=== PATIENT | male | born 1990 | race Caucasian/White ===

== ENCOUNTER 2019-01-02 13:51 | Emergency (ER) | payer OTHER ==
[~2019-01-02] VITALS: Ht 190.5 cm; Wt 92.1 kg
[2019-01-02] MEDS ORDERED: ULTRAM 50MG TAB50 MG PO (17:07)
[2019-01-02 17:23] VITALS: BP 125/66
== END 2019-01-02 17:20 | disposition home or self-care (01) ==
LOC: ER 13:51
DX: M25.532 Pain in left wrist (principal); F17.210 Nicotine dependence, cigarettes, uncomplicated

== ENCOUNTER 2019-04-13 10:07 | Emergency (ER) | payer OTHER ==
[~2019-04-13] VITALS: Ht 190.5 cm; Wt 93.0 kg
[~2019-04-13 10:07] MED LIST: ULTRAM 50MG TAB50 MG PO
[2019-04-13 13:09] LABS: HEMATOCRIT 33.8 % (42.0-52.0); HEMOGLOBIN 10.7 gm/dL (14.0-18.0); MCHC 31.8 g/dL (28.0-37.0); MCV 62.9 fL (80.0-100.0); PLATELET COUNT 182 thou/uL (150-400); RBC 5.37 mil/uL (4.50-6.00); RDW 16.6 % (10.5-14.5); WBC 5.4 thou/uL (4.0-11.0)
[2019-04-13 13:16] LABS: ANION GAP 7 mmol/L (7-16); BUN 21 mg/dL (7-18); CHLORIDE 106 mmol/L (98-107); CO2 27 mmol/L (21-32); CREATININE 0.8 mg/dL (0.7-1.3); GLUCOSE 103 mg/dL (74-106); POTASSIUM 4.3 mmol/L (3.5-5.1); SODIUM 140 mmol/L (136-145)
[2019-04-13 13:22] LABS: ALBUMIN 3.3 g/dL (3.4-5.0); SALICYLATE < 2.8 mg/dL (2.8-20.0); SGOT 18 U/L (15-37); SGPT 23 U/L (30-65); TOTAL BILIRUBIN 0.3 mg/dL (<0.1-1.0); TOTAL PROTEIN 6.7 g/dL (6.4-8.2)
[2019-04-13 13:43] LABS: ABSOLUTE NEUTROPHILS 3.8 thou/uL (1.4-8.2); ANISOCYTOSIS 1+; HYPOCHROMASIA 1+; MICROCYTES 1+
[2019-04-13 18:48] VITALS: BP 145/86
== END 2019-04-13 18:50 | disposition home or self-care (01) ==
LOC: ER 10:07
PROVIDERS: Nurse Practitioner
DX: S62.015A Nondisplaced fracture of distal pole of navicular [scaphoid] bone of left wrist, initial encounter for closed fracture (principal); F17.210 Nicotine dependence, cigarettes, uncomplicated; X58.XXXA Exposure to other specified factors, initial encounter; Y92.89 Other specified places as the place of occurrence of the external cause; Y93.89 Activity, other specified; Y99.8 Other external cause status

== ENCOUNTER 2019-05-07 18:18 | Emergency (ER) | payer OTHER ==
[~2019-05-07] VITALS: Ht 190.5 cm; Wt 84.8 kg
--- NOTE | ~2019-05-07 | EMS ---
[place] [address] EMS Patient Care Report Name: RUTHIE FIREND Room #: DEP MADELINE Kemp#: [id number] Admission: 05/07/19 Attend Phys: Discharge: 05/07/19 Date of : [birth year] Report #: [id number] THIS REPORT FOR: //name// Report Transmitted: 05/11/2019 08:54 EMS Care Summary [place], [place]/[facility] Incident [id number] @ 05/07/2019 17:58 Incident Location [address] [place] [address] Patient RUTHIE FRIEND Male, 28 Years 1990 Patient Address [address] [place] [address] Patient History Substance Abuse,Depression,Anxiety, Patient Allergies No known allergies, Patient Medications None Reported, Chief Complaint Suicidal ideation Disposition Transported No Lights/[place] Reason Heat/Cold Exposure Transported To [facility] Narrative 28 y/o male with suicidal ideation after being arrested. On arrival found pt sitting on ground with [facility] on scene. PD stated that he had bee arrested and as soon as he was told he would be going to senior care [place] [address] EMS Patient Care Report Name: RUTHIE FRIEND Room #: DEP [facility] [place]#: [id number] Admission: 05/07/19 Attend Phys: Discharge: 05/07/19 Date of : [birth year] Report #: [id number] he needed an ambulance because he was suicidal. PD had pt's hands cuffed behind his back. Pt walked to the ambulance and sat on bench seat. EMS asked pt if he had been having suicidal thoughts before he was arrested and he stated that he did not. PD stated the pt admitted to them that he used meth approximately 5 hours ago, pt confirmed this with EMS. EMS monitored pt/VS en route to [facility] ED. Transferred care of pt to [facility] ED RN without incident. Initial Vitals @18:14P: 93,BP: 138/84,CO: 5,SpO2: 97, @18:08P: 93,R: 18,BP: 137/83,Pain: 0/10,GCS: 15,SpO2: 97,Revised Trauma: 12, Assessments @18:07MENTAL:Other,Person Oriented,Event Oriented,Place Oriented,Time Oriented,SKIN:No Abnormalities,HEENT:Head/Face: No Abnormalities,Eyes: No Abnormalities,Neck/Airway: No Abnormalities,LUNG SOUNDS:General: No Abnormalities,Left Upper: No Abnormalities,Right Upper: No Abnormalities,Left Lower: No Abnormalities,Right Lower: No Abnormalities,ABDOMEN:General: No Abnormalities,Left Upper: No Abnormalities,Right Upper: No Abnormalities,Left Lower: No Abnormalities,Right Lower: No Abnormalities,PELVIS//GI:No Abnormalities,EXTREMITIES:Capillary Refill: Left Upper: < 2 Sec,Left Arm: No Abnormalities,Right Arm: No Abnormalities,Left Leg: No Abnormalities,Right Leg: No Abnormalities,PULSE:Radial: 2+ Normal,NEURO:No Abnormalities, Impression Suicidal Ideation Procedures @18:07ALS AssessmentResponse: UnchangedSucceeded Timeline 17:57,Call Received 17:57,Dispatch Notified 17:58,Dispatched 18:01,En Route 18:05,On Scene 18:07,At Patient 18:07,ALS Assessment,Response: UnchangedSucceeded, 18:08,BP: 137/83 M,PULSE: 93,RR: 18 R,SPO2: 97 Ox,ETCO2: ,BG: ,PAIN: 0,GCS: 15, 18:10,Depart Scene 18:14,BP: 138/84 M,PULSE: 93,RR: R,SPO2: 97 Ox,ETCO2: ,BG: ,PAIN: ,GCS: , 18:15,At Destination 18:26,Call Closed Disclaimer [address] [address] EMS Patient Care Report Name: RUTHIE FRIEND Room #: DEP [place]#: [id number] Admission: 05/07/19 Attend Phys: Discharge: 05/07/19 Date of : [birth year] Report #: [id number] v1.1 Copyright 2019 [email or web address] This EMS Care Summary contains data elements from the applicable legal record (which may be displayed differently). It is designed to provide pertinent information for the following purposes: continuity of care, clinical quality, and state data reporting. The complete legal record is available to ED staff and administrators of the receiving hospital in [facility]'s Patient Tracker. All data is provided "as is."
[2019-05-07 18:19] VITALS: BP 133/88
== END 2019-05-07 19:01 ==
LOC: ER 18:18
DX: S00.83XA Contusion of other part of head, initial encounter (principal); R45.851 Suicidal ideations; F32.9 Major depressive disorder, single episode, unspecified; F17.210 Nicotine dependence, cigarettes, uncomplicated; Z59.0 Homelessness; W18.39XA Other fall on same level, initial encounter; Y93.89 Activity, other specified; Y92.89 Other specified places as the place of occurrence of the external cause; Y99.8 Other external cause status

== ENCOUNTER 2019-05-20 19:31 | Emergency (ER) | payer OTHER ==
[~2019-05-20] VITALS: Ht 190.5 cm; Wt 93.0 kg
[2019-05-20 20:11] LABS: HEMATOCRIT 34.2 % (42.0-52.0); MCH 20.5 pg (26.0-34.0); MCHC 32.2 g/dL (28.0-37.0); MCV 63.6 fL (80.0-100.0); PLATELET COUNT 221 thou/uL (150-400); RBC 5.38 mil/uL (4.50-6.00); RDW 17.1 % (10.5-14.5); WBC 4.9 thou/uL (4.0-11.0)
[2019-05-20 20:23] LABS: ANION GAP 14 mmol/L (7-16); BUN 8 mg/dL (7-18); CALCIUM 9.4 mg/dL (8.5-10.1); CHLORIDE 105 mmol/L (98-107); CO2 23 mmol/L (21-32); CREATININE 0.8 mg/dL (0.7-1.3); GLUCOSE 101 mg/dL (74-106); POTASSIUM 3.9 mmol/L (3.5-5.1); SODIUM 142 mmol/L (136-145)
[2019-05-20 20:34] LABS: LIPASE 125 U/L (73-393); SGOT 34 U/L (15-37); SGPT 36 U/L (30-65); TOTAL BILIRUBIN 0.3 mg/dL (<0.1-1.0); TOTAL PROTEIN 7.9 g/dL (6.4-8.2); TROPONIN-I <0.06 ng/mL (<0.06)
[2019-05-20 20:35] LABS: ABSOLUTE NEUTROPHILS 3.5 thou/uL (1.4-8.2)
[2019-05-20 20:36] LABS: ANISOCYTOSIS 1+; MICROCYTES 2+
[2019-05-20 20:37] LABS: HYPOCHROMASIA 1+
[2019-05-21 00:02] VITALS: BP 114/71
== END 2019-05-20 23:57 | disposition home or self-care (01) ==
LOC: ER 19:31
PROVIDERS: Physician Assistant
DX: S62.001A Unspecified fracture of navicular [scaphoid] bone of right wrist, initial encounter for closed fracture (principal); R45.851 Suicidal ideations; F41.8 Other specified anxiety disorders; F32.9 Major depressive disorder, single episode, unspecified; F17.210 Nicotine dependence, cigarettes, uncomplicated; W18.39XA Other fall on same level, initial encounter; Y93.89 Activity, other specified; Y92.89 Other specified places as the place of occurrence of the external cause; Y99.8 Other external cause status

== ENCOUNTER 2020-11-29 19:40 | Emergency (ER) | payer OTHER ==
[~2020-11-29] VITALS: Ht 190.5 cm; Wt 83.9 kg
[2020-11-29 19:41] VITALS: BP 126/75
== END 2020-11-29 20:19 ==
LOC: ER 19:40
DX: S66.912A Strain of unspecified muscle, fascia and tendon at wrist and hand level, left hand, initial encounter (principal); S90.31XA Contusion of right foot, initial encounter; F17.210 Nicotine dependence, cigarettes, uncomplicated; X58.XXXA Exposure to other specified factors, initial encounter; Y93.39 Activity, other involving climbing, rappelling and jumping off; Y92.89 Other specified places as the place of occurrence of the external cause; Y99.8 Other external cause status

== ENCOUNTER 2021-01-30 09:29 | Emergency (ER) | payer OTHER ==
[~2021-01-30] VITALS: Ht 190.5 cm; Wt 86.2 kg
[2021-01-30 10:45] VITALS: BP 135/82
[2021-01-30] MEDS ORDERED: CEPHALEXIN500 MG PO (11:21)
== END 2021-01-30 11:35 | disposition home or self-care (01) ==
LOC: ER 09:29
DX: L03.116 Cellulitis of left lower limb (principal); M79.641 Pain in right hand; F32.9 Major depressive disorder, single episode, unspecified; F41.9 Anxiety disorder, unspecified; F17.210 Nicotine dependence, cigarettes, uncomplicated

== ENCOUNTER 2021-04-11 16:56 | Emergency (ER) | payer OTHER ==
[~2021-04-11] VITALS: Ht 185.4 cm; Wt 77.1 kg
[~2021-04-11 16:56] MED LIST changes: +CEPHALEXIN500 MG PO
[2021-04-11 17:37] LABS: HEMATOCRIT 29.3 % (42.0-52.0); HEMOGLOBIN 9.5 gm/dL (14.0-18.0); MCH 20.5 pg (26.0-34.0); MCHC 32.3 g/dL (28.0-37.0); MCV 63.6 fL (80.0-100.0); PLATELET COUNT 229 thou/uL (150-400); RBC 4.61 mil/uL (4.50-6.00); RDW 16.4 % (10.5-14.5); WBC 5.7 thou/uL (4.0-11.0)
[2021-04-11 17:42] LABS: CALCIUM 8.7 mg/dL (8.5-10.1); CREATININE 0.9 mg/dL (0.7-1.3); POTASSIUM 3.2 mmol/L (3.5-5.1)
[2021-04-11 17:49] LABS: ALBUMIN 3.6 g/dL (3.4-5.0); TOTAL BILIRUBIN 0.4 mg/dL (0.2-1.0)
[2021-04-11 18:28] LABS: ABSOLUTE NEUTROPHILS 3.6 thou/uL (1.4-8.2); ANISOCYTOSIS 1+; HYPOCHROMASIA 3+; MICROCYTES 3+; POLYCHROMASIA 1+
[2021-04-11 19:30] VITALS: BP 105/60
--- NOTE | 2021-04-12 07:34 | EKG ---
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
== END 2021-04-11 19:38 ==
LOC: ER 16:56
PROVIDERS: Physician Assistant
DX: S30.92XA Unspecified superficial injury of abdominal wall, initial encounter (principal); S80.921A Unspecified superficial injury of right lower leg, initial encounter; R11.2 Nausea with vomiting, unspecified; F41.9 Anxiety disorder, unspecified; F32.9 Major depressive disorder, single episode, unspecified; F17.210 Nicotine dependence, cigarettes, uncomplicated; Z79.2 Long term (current) use of antibiotics; Y35.833A Legal intervention involving a conducted energy device, suspect injured, initial encounter; Y93.89 Activity, other specified; Y99.8 Other external cause status; Y92.89 Other specified places as the place of occurrence of the external cause

== ENCOUNTER 2021-07-22 12:59 | Emergency (ER) | payer OTHER ==
[~2021-07-22] VITALS: Ht 190.5 cm; Wt 86.2 kg
[2021-07-22 13:02] VITALS: BP 123/93
[2021-07-22] MEDS ORDERED: VISTARIL50 MG PO (13:49)
[2021-07-22] MEDS ORDERED: NEURONTIN300 MG PO (13:49)
== END 2021-07-22 14:00 | disposition home or self-care (01) ==
LOC: ER 12:59
DX: F41.9 Anxiety disorder, unspecified (principal); G62.9 Polyneuropathy, unspecified; F32.9 Major depressive disorder, single episode, unspecified; F17.210 Nicotine dependence, cigarettes, uncomplicated

== ENCOUNTER 2021-08-30 17:09 | Emergency (ER) | payer OTHER ==
[~2021-08-30] VITALS: Ht 190.5 cm; Wt 83.9 kg
[~2021-08-30 17:09] MED LIST changes: +DOXYCYCLINE 10100 MG PO; +NEURONTIN300 MG PO; +VISTARIL50 MG PO
[2021-08-30 17:11] VITALS: BP 150/85
[2021-08-30 17:48] LABS: ABSOLUTE NEUTROPHILS 3.8 thou/uL (1.4-8.2); BASOPHILS 1.2 % (0.0-2.0); EOSINOPHILS 1.5 % (0.0-3.0); HEMATOCRIT 35.7 % (42.0-52.0); LYMPHOCYTES 27.5 % (24.0-44.0); MCH 19.7 pg (26.0-34.0); MCHC 30.8 g/dL (28.0-37.0); MCV 63.8 fL (80.0-100.0); MONOCYTES 6.9 % (1.0-8.0); PLATELET COUNT 264 thou/uL (150-400); POLYS 62.9 % (36.0-66.0); RDW 16.8 % (10.5-14.5)
[2021-08-30 18:07] LABS: CALCIUM 8.7 mg/dL (8.5-10.1); CREATININE 0.8 mg/dL (0.7-1.3); POTASSIUM 3.7 mmol/L (3.5-5.1)
[2021-08-30 18:14] LABS: MICROCYTES 2+
[2021-08-30 18:24] LABS: AMP/METHAMP POSITIVE (Negative); BARBITURATES Negative (Negative); BENZODIAZEPINES Negative (Negative); COCAINE Negative (Negative); METHADONE Negative (Negative); OPIATES POSITIVE (Negative); PCP Negative (Negative)
== END 2021-08-30 19:15 | disposition home or self-care (01) ==
LOC: ER 17:09
PROVIDERS: Emergency Medicine
DX: F32.9 Major depressive disorder, single episode, unspecified (principal); Z20.822 Contact with and (suspected) exposure to COVID-19; F41.9 Anxiety disorder, unspecified; F15.10 Other stimulant abuse, uncomplicated; G62.9 Polyneuropathy, unspecified; F17.210 Nicotine dependence, cigarettes, uncomplicated; Z79.899 Other long term (current) drug therapy; Z79.891 Long term (current) use of opiate analgesic

== ENCOUNTER 2021-09-20 03:49 | Emergency (ER) | payer OTHER ==
[~2021-09-20] VITALS: Ht 190.5 cm; Wt 83.9 kg
[2021-09-20] MEDS ORDERED: DOXYCYCLINE 10100 MG PO (05:05)
[2021-09-20 05:34] VITALS: BP 132/68
--- NOTE | 2021-09-21 10:47 | NUR ---
Leon roberson vouched for $11.07 per the [facility]. Pt was in the ED yesterday and dc'd with script. No insurance.
== END 2021-09-20 05:34 ==
LOC: ER 03:49
DX: L03.011 Cellulitis of right finger (principal); J00 Acute nasopharyngitis [common cold]; F41.9 Anxiety disorder, unspecified; F32.9 Major depressive disorder, single episode, unspecified; G62.9 Polyneuropathy, unspecified; F17.210 Nicotine dependence, cigarettes, uncomplicated; Z59.00 Homelessness unspecified; Z79.899 Other long term (current) drug therapy

== ENCOUNTER 2021-09-25 06:14 | Emergency (ER) | payer OTHER ==
[~2021-09-25] VITALS: Ht 190.5 cm; Wt 86.2 kg
[2021-09-25 07:02] VITALS: BP 151/70
[2021-09-25] MEDS ORDERED: AUGMENTIN 875-1 EACH PO (07:13)
[2021-09-25] MEDS ORDERED: NAPROSYN500 MG PO (07:13)
== END 2021-09-25 09:49 | disposition home or self-care (01) ==
LOC: ER 06:14
DX: L08.9 Local infection of the skin and subcutaneous tissue, unspecified (principal); F41.9 Anxiety disorder, unspecified; F32.9 Major depressive disorder, single episode, unspecified; G62.9 Polyneuropathy, unspecified; F17.210 Nicotine dependence, cigarettes, uncomplicated; Z79.899 Other long term (current) drug therapy

== ENCOUNTER 2021-10-10 08:17 | Emergency (ER) | payer OTHER ==
[~2021-10-10] VITALS: Ht 190.5 cm; Wt 88.5 kg
[~2021-10-10 08:17] MED LIST changes: +AUGMENTIN 875-1 EACH PO; +NAPROSYN500 MG PO
[2021-10-10 08:49] LABS: HEMATOCRIT 33.8 % (42.0-52.0); HEMOGLOBIN 10.6 gm/dL (14.0-18.0); MCH 19.7 pg (26.0-34.0); MCHC 31.3 g/dL (28.0-37.0); MCV 62.9 fL (80.0-100.0); RBC 5.38 mil/uL (4.50-6.00); RDW 15.8 % (10.5-14.5); WBC 4.1 thou/uL (4.0-11.0)
[2021-10-10 08:58] LABS: CALCIUM 8.6 mg/dL (8.5-10.1); CREATININE 0.7 mg/dL (0.7-1.3); POTASSIUM 4.2 mmol/L (3.5-5.1)
[2021-10-10 09:04] LABS: ALBUMIN 3.3 g/dL (3.4-5.0); TOTAL BILIRUBIN 0.2 mg/dL (0.2-1.0)
[2021-10-10] MEDS ORDERED: BACTRIM DS TAB1 EACH PO ×2 (10:09→10:35)
[2021-10-10] MEDS ORDERED: TYLENOL EXTRA500 M1 PO (10:38)
[2021-10-10] MEDS ORDERED: IBUPROFEN 800800 MG PO (10:38)
--- NOTE | 2021-10-10 10:42 | NUR ---
[facility] notified to vouch atb script for pt. Dcing from the ER. Homeless.
[2021-10-10 11:00] VITALS: BP 137/87
== END 2021-10-10 11:01 | disposition home or self-care (01) ==
LOC: ER 08:17
PROVIDERS: Student in an Organized Health Care Education/Training Program
DX: U07.1 COVID-19 (principal); L08.9 Local infection of the skin and subcutaneous tissue, unspecified; M79.89 Other specified soft tissue disorders; F41.9 Anxiety disorder, unspecified; F32.9 Major depressive disorder, single episode, unspecified; F17.210 Nicotine dependence, cigarettes, uncomplicated

== ENCOUNTER 2021-10-17 05:36 | Emergency (ER) | payer OTHER ==
[~2021-10-17] VITALS: Ht 190.5 cm; Wt 83.9 kg
[~2021-10-17 05:36] MED LIST changes: +BACTRIM DS TAB1 EACH PO; +IBUPROFEN 800800 MG PO; +TYLENOL EXTRA500 M1 PO
[2021-10-17 07:41] VITALS: BP 127/82
== END 2021-10-17 07:37 | disposition home or self-care (01) ==
LOC: ER 05:36
DX: M79.641 Pain in right hand (principal); F41.9 Anxiety disorder, unspecified; F32.9 Major depressive disorder, single episode, unspecified; F17.210 Nicotine dependence, cigarettes, uncomplicated

== ENCOUNTER 2021-10-19 09:11 | Emergency (ER) | payer OTHER ==
[~2021-10-19] VITALS: Ht 190.5 cm; Wt 83.9 kg
[2021-10-19 09:44] VITALS: BP 139/81
[2021-10-20] MEDS ORDERED: MELOXICAM15 MG PO ×3 (12:58→13:10)
[2021-10-20] MEDS ORDERED: GABAPENTIN100 MG PO (13:10)
== END 2021-10-19 11:03 | disposition home or self-care (01) ==
LOC: ER 09:11
DX: F41.9 Anxiety disorder, unspecified (principal); F32.9 Major depressive disorder, single episode, unspecified; F17.210 Nicotine dependence, cigarettes, uncomplicated

== ENCOUNTER 2021-10-20 09:17 | Emergency (ER) | payer OTHER ==
[~2021-10-20] VITALS: Ht 190.5 cm; Wt 83.9 kg
[2021-10-20 12:08] LABS: ABSOLUTE NEUTROPHILS 6.1 thou/uL (1.4-8.2); BASOPHILS 0.8 % (0.0-2.0); EOSINOPHILS 2.2 % (0.0-3.0); HEMATOCRIT 35.5 % (42.0-52.0); HEMOGLOBIN 11.4 gm/dL (14.0-18.0); LYMPHOCYTES 19.4 % (24.0-44.0); MCH 20.1 pg (26.0-34.0); MCHC 31.9 g/dL (28.0-37.0); MCV 62.9 fL (80.0-100.0); MONOCYTES 6.9 % (1.0-8.0); PLATELET COUNT 308 thou/uL (150-400); POLYS 70.7 % (36.0-66.0); RBC 5.65 mil/uL (4.50-6.00); RDW 16.2 % (10.5-14.5); WBC 8.6 thou/uL (4.0-11.0)
[2021-10-20 12:43] LABS: ALBUMIN 3.7 g/dL (3.4-5.0); CALCIUM 8.6 mg/dL (8.5-10.1); CREATININE 0.8 mg/dL (0.7-1.3); TOTAL BILIRUBIN 0.2 mg/dL (0.2-1.0); TOTAL PROTEIN 7.1 g/dL (6.4-8.2)
[2021-10-20 12:48] LABS: POTASSIUM 4.4 mmol/L (3.5-5.1)
[2021-10-20 12:51] LABS: ANISOCYTOSIS 1+; HYPOCHROMASIA 1+; MICROCYTES 2+; OVALOCYTES 1+
[2021-10-20] MEDS ORDERED: MELOXICAM15 MG PO ×3 (12:58→13:10)
[2021-10-20] MEDS ORDERED: GABAPENTIN100 MG PO (13:10)
[2021-10-20 13:17] VITALS: BP 132/80
== END 2021-10-20 13:12 | disposition home or self-care (01) ==
LOC: ER 09:17
PROVIDERS: Emergency Medicine
DX: M79.641 Pain in right hand (principal); F41.9 Anxiety disorder, unspecified; F32.9 Major depressive disorder, single episode, unspecified; F17.210 Nicotine dependence, cigarettes, uncomplicated; X31.XXXA Exposure to excessive natural cold, initial encounter; Y99.8 Other external cause status; Y93.89 Activity, other specified; Y92.89 Other specified places as the place of occurrence of the external cause

== ENCOUNTER 2021-10-27 17:45 | Emergency (ER) | payer OTHER ==
[~2021-10-27] VITALS: Ht 190.5 cm; Wt 83.9 kg
[~2021-10-27 17:45] MED LIST changes: +GABAPENTIN100 MG PO; +MELOXICAM15 MG PO
[2021-10-27 19:06] LABS: HEMATOCRIT 34.7 % (42.0-52.0); HEMOGLOBIN 10.9 gm/dL (14.0-18.0); MCH 19.5 pg (26.0-34.0); MCHC 31.5 g/dL (28.0-37.0); RBC 5.59 mil/uL (4.50-6.00); RDW 16.1 % (10.5-14.5); WBC 5.7 thou/uL (4.0-11.0)
[2021-10-27 19:18] LABS: URINE BILIRUBIN NEGATIVE (Negative); URINE BLOOD NEGATIVE (Negative); URINE CLARITY CLEAR; URINE COLOR YELLOW; URINE GLUCOSE-RANDOM* NEGATIVE (Negative); URINE KETONES TRACE (Negative); URINE LEUKOCYTES-REFLEX NEGATIVE (Negative); URINE NITRITE-REFLEX NEGATIVE (Negative); URINE PROTEIN (DIPSTICK) NEGATIVE (Negative); URINE SPECIFIC GRAVITY >= 1.030 (1.005-1.035)
[2021-10-27 19:30] LABS: CREATININE 0.8 mg/dL (0.7-1.3)
[2021-10-27 19:38] LABS: TOTAL BILIRUBIN 0.4 mg/dL (0.2-1.0)
[2021-10-27 19:39] LABS: ALBUMIN 3.5 g/dL (3.4-5.0); TOTAL PROTEIN 7.1 g/dL (6.4-8.2)
[2021-10-27 20:05] VITALS: BP 122/76
== END 2021-10-27 20:05 | disposition home or self-care (01) ==
LOC: ER 17:45
PROVIDERS: Nurse Practitioner Family
DX: R11.2 Nausea with vomiting, unspecified (principal); F41.9 Anxiety disorder, unspecified; F32.9 Major depressive disorder, single episode, unspecified; G62.9 Polyneuropathy, unspecified; F10.10 Alcohol abuse, uncomplicated; F17.210 Nicotine dependence, cigarettes, uncomplicated; Z79.899 Other long term (current) drug therapy

== ENCOUNTER 2021-10-29 14:50 | Emergency (ER) | payer OTHER ==
[~2021-10-29] VITALS: Ht 190.5 cm; Wt 83.9 kg
[2021-10-29 14:52] VITALS: BP 130/87
[2021-10-29] MEDS ORDERED: NOHOMEMEDICATIONS (15:06)
[2021-10-29 15:39] LABS: AMP/METHAMP Negative (Negative); BARBITURATES Negative (Negative); BENZODIAZEPINES Negative (Negative); COCAINE Negative (Negative); METHADONE Negative (Negative); OPIATES Negative (Negative); PCP Negative (Negative)
[2021-10-29 15:39] LABS: ABSOLUTE NEUTROPHILS 2.6 thou/uL (1.4-8.2); EOSINOPHILS 2.1 % (0.0-3.0); LYMPHOCYTES 32.9 % (24.0-44.0); MCH 19.5 pg (26.0-34.0); MCHC 31.5 g/dL (28.0-37.0); MCV 61.7 fL (80.0-100.0); MONOCYTES 7.7 % (1.0-8.0); PLATELET COUNT 274 thou/uL (150-400); POLYS 55.3 % (36.0-66.0); RBC 5.67 mil/uL (4.50-6.00); RDW 16.2 % (10.5-14.5); WBC 4.7 thou/uL (4.0-11.0)
[2021-10-29 15:41] LABS: CREATININE 0.9 mg/dL (0.7-1.3)
[2021-10-29 15:55] LABS: ANION GAP 11 mmol/L (7-16); BUN 16 mg/dL (7-18); CALCIUM 9.3 mg/dL (8.5-10.1); CHLORIDE 106 mmol/L (98-107); CO2 26 mmol/L (21-32); GLUCOSE 109 mg/dL (74-106); POTASSIUM 4.2 mmol/L (3.5-5.1); SODIUM 143 mmol/L (136-145)
[2021-10-29 16:01] LABS: ALBUMIN 3.7 g/dL (3.4-5.0); DIRECT BILIRUBIN 0.1 mg/dL (<0.1-0.2); SALICYLATE < 2.8 mg/dL (2.8-20.0); SGOT 15 U/L (15-37); SGPT 32 U/L (16-63); TOTAL BILIRUBIN 0.3 mg/dL (0.2-1.0); TOTAL PROTEIN 7.2 g/dL (6.4-8.2)
[2021-10-29 17:30] LABS: HYPOCHROMASIA 2+
[2021-10-29 17:31] LABS: ANISOCYTOSIS 1+; MICROCYTES 2+; OVALOCYTES 1+
== END 2021-10-29 20:26 ==
LOC: ER 14:50
PROVIDERS: Nurse Practitioner
DX: F19.10 Other psychoactive substance abuse, uncomplicated (principal); Z20.822 Contact with and (suspected) exposure to COVID-19; F32.9 Major depressive disorder, single episode, unspecified; F17.210 Nicotine dependence, cigarettes, uncomplicated